=== PATIENT | female | born 1990 | race African-American/Black ===

== ENCOUNTER 2018-06-09 20:35 | Emergency (ER) | payer MEDICAID ==
[~2018-06-09] VITALS: Ht 154.9 cm; Wt 58.5 kg
[2018-06-09 20:46] VITALS: Ht 154.9 cm; Wt 58.5 kg
[2018-06-09 21:35] VITALS: BP 113/74
== END 2018-06-09 21:35 | disposition home or self-care (01) ==
LOC: ED 20:35
DX: R22.0 Localized swelling, mass and lump, head (principal)